=== PATIENT | male | born 1955 | race African-American/Black ===

== ENCOUNTER 2016-11-30 13:45 | Emergency (ER) | payer BC ==
--- NOTE | ~2016-11-30 | CR63 ---
[facility] A Service of [facility] RADIOLOGY TEXT RESULTS PATIENT: BARRETT LEZAMA LOCATION: [facility]FT[facility] : 53 UNIT #: [id number] AGE: [address]: Andree Dee APRN SEX: M ORDER DR: [id number] [facility] [address] [place], [place] [address] [id number] E MR#: [id number] Acc #: [id number] NAME: BARRETT LEZAMA : 1955 SEX: M STUDY DATE/TIME: 11/30/2016 15:02 UNIT: CFT[facility] ROOM: STUDY DESCRIPTION: CR Chest 2 View Attending Physician: Andree Dee A.P.R.N. Referring Physician: Self Referral-Refer Use Only Ordering Physician: Ed Randy Melendrez M.D. Primary Care Physician: Primary Care Physician No MEDICAL IMAGING REPORT This report is preliminary unless electronic signature is present EXAM PA and lateral chest, date 11/30/16 HISTORY 61-year-old male with productive cough and shortness of breath for 1 week. Smoking history. COMPARISON PA and lateral chest 12/08/2004. FINDINGS PA and lateral examination of the chest upright shows a good expansion of the parenchyma with a normal distribution of the pulmonary vascularity. There is no indication of congestion, effusion, infiltrate, tumor, or nodular density. The pleural reflections and diaphragmatic contours are normal. The cardiac silhouette and mediastinal anatomy is within normal limits. IMPRESSION Normal chest. Dictated by... Ciara Grande M.D. THIS IS AN ELECTRONICALLY VERIFIED REPORT Ciara Grande M.D. at 12/01/2016 8:48 AM [facility]/stuart TD: 11/30/2016 20:41 JOB #: [id number] MEDICAL IMAGING REPORT [facility] A Service of [facility] RADIOLOGY TEXT RESULTS PATIENT: BARRETT LEZAMA LOCATION: [place] : 53 UNIT #: [id number] AGE: [address]: Andree Dee APRN SEX: M ORDER DR: Page 1 of 1 COPY
[~2016-11-30 13:45] MED LIST: CIPRO PO; DOXYCYCLINE HY100 M1 PO; NICOTINE T1 PATCH .2 TOP; NO MEDICATIONS
[2016-11-30 15:06] LABS: URINE SOURCE CLEAN CATCH
[2016-11-30 15:25] LABS: URINE APPEARANCE CLEAR; URINE BILIRUBIN NEG (NEG); URINE BLOOD NEG (NEG); URINE COLOR YELLOW; URINE GLUCOSE NEG (NEG); URINE KETONE NEG (NEG); URINE LEUKOCYTE ESTERASE NEG (NEG); URINE NITRATE NEG (NEG); URINE PROTEIN NEG (NEG); URINE SPECIFIC GRAVITY 1.003 (1.003-1.035); URINE UROBILINOGEN 0.2 MG/DL (NEG)
[2016-11-30 15:33] LABS: CULTURE INDICATED? NO; URINE TRICHOMONAS NEGATIVE
[2016-12-04 04:25] LABS: CHLAMYDIA TRACH Not Detected (Not Detected); N GONOR Not Detected (Not Detected)
== END 2016-11-30 16:35 | disposition home or self-care (01) ==
LOC: CFTX 13:45 → CED 13:45 → CFTX 15:45
PROVIDERS: Nurse Practitioner
DX: J06.9 Acute upper respiratory infection, unspecified (principal); R30.0 Dysuria; I10 Essential (primary) hypertension; F17.210 Nicotine dependence, cigarettes, uncomplicated; Z96.642 Presence of left artificial hip joint
CPT/HCPCS: 71020; 81003; 87491; 87591; 99283

== ENCOUNTER → 2017-01-08 | Outpatient (CLI) | payer BC ==
--- NOTE | ~2017-01-08 | US113 ---
[facility] A Service of [facility] & [facility] RADIOLOGY TEXT RESULTS PATIENT: BARRETT LEZAMA LOCATION: [facility] : 53 UNIT #: [id number] AGE: [address]: LILIANE KIRK SEX: M ORDER DR: [id number] [facility] [address] [place], [place] [address] [id number] O MR#: [id number] Acc #: [id number] NAME: BARRETT LEZAMA : 1955 SEX: M STUDY DATE/TIME: 01/08/2017 13:59 UNIT: [facility] ROOM: STUDY DESCRIPTION: US Scrotal Duplex Complete Attending Physician: Liliane Kirk Referring Physician: Liliane Kirk Ordering Physician: Liliane Kirk Primary Care Physician: Liliane Kirk MEDICAL IMAGING REPORT This report is preliminary unless electronic signature is present EXAM Scrotal ultrasound. INDICATIONS Scrotal pain for the past few months. PROCEDURE Thomas-scale and Doppler imaging scrotum and scrotal contents. COMPARISON None. FINDINGS Right testicle measures 3.7 x 1.9 x 2.4 cm. No mass. Left testicle measures 3.9 x 2.0 x 2.5 cm. No mass. Testicles show symmetric flow. Small bilateral hydroceles. IMPRESSION Small bilateral hydroceles, otherwise negative scrotal ultrasound. Dictated by... Denny Shrestha M.D. THIS IS AN ELECTRONICALLY VERIFIED REPORT Denny Shrestha M.D. at 01/12/2017 8:27 AM [facility]/christos TD: 01/11/2017 12:08 JOB #: [id number] MEDICAL IMAGING REPORT Page 1 of 1 COPY
== END | disposition home or self-care (01) ==
LOC: CGUS 13:30
DX: N50.819 Testicular pain, unspecified (principal); N43.3 Hydrocele, unspecified
CPT/HCPCS: 93975